=== PATIENT | male | born 1975 | race Two or more races ===

== ENCOUNTER 2017-04-05 12:48 | Emergency (ER) | payer SELFPAY | END 2017-04-05 18:21 | disposition home or self-care (01) | PROVIDERS: Emergency Provider Family Medicine; Visit Provider Family Medicine | DX: S01.81XA Laceration without foreign body of other part of head, initial encounter (principal); W01.10XA Fall on same level from slipping, tripping and stumbling with subsequent striking against unspecified object, initial encounter; Y92.019 Unspecified place in single-family (private) house as the place of occurrence of the external cause | CPT/HCPCS: 12014; 99284 ==